=== PATIENT | female | born 1950 | race Caucasian/White ===

== ENCOUNTER 2022-04-30 06:49 | Outpatient (CLI) | payer MEDICARE | END 2022-04-30 06:50 | disposition home or self-care (01) | LOC: BICULT 06:49 | PROVIDERS: ATTEND Internal Medicine Nephrology | DX: I12.9 Hypertensive chronic kidney disease with stage 1 through stage 4 chronic kidney disease, or unspecified chronic kidney disease (principal); N18.30 Chronic kidney disease, stage 3 unspecified | CPT/HCPCS: 76770; 93975 ==

== ENCOUNTER 2022-05-12 08:38 | Inpatient (IN) | payer MEDICARE ==
[2022-05-12] MEDS ORDERED: Acetaminophen 500 MG TAB ONE (09:33)
[2022-05-12 09:40] LABS: Hemoglobin 5.7 g/dL (12.0-16.0); Mean Corpuscular HGB CONC 29.2 g/dL (32.0-36.0); Mean Corpuscular Hemoglobin 18.4 pg (27.0-31.0); Mean Corpuscular Volume 63.1 fl (78.0-98.0); Mean Platelet Volume 5.1 fL (7.4-10.4); Platelet Count 201 10x3/uL (130-400); RBC Distribution Width 17.2 % (11.5-14.5); Red Blood Cell (RBC) Count 3.08 mill/uL (4.20-5.40); White Blood Cell (WBC) Count 3.8 10x3/uL (4.8-10.8)
[2022-05-12 09:58] LABS: Band 1 % (5-11); Eosinophils 1 % (0-10); Hypochromia MODERATE=16-30 cells (100X) (0-5/hpf); Lymphocytes 26 % (21-51); MDiff Complete? YES; Microcytosis MODERATE=15-30 cells (100X) (0-5/hpf); Monocytes 10 % (0-10); Neutrophil 62 % (42-75); Platelet Morphology Comment Appears Adequate; Polychromasia SLIGHT = 2-3 cells (100X) (0-2/hpf); Schistocytes SLIGHT = 2-5 cells (100X) (0-1/hpf); Small Platelets MODERATE; Tear Drops SLIGHT = 2-5 cells (100X) (0-1/hpf)
[2022-05-12 10:00] LABS: ALT (SGPT) 26 U/L (8-55); AST (SGOT) 35 U/L (5-34); Albumin 4.1 g/dL (3.4-4.8); Alkaline Phosphatase 111 U/L (40-110); Anion Gap 14 mmol/L (10-20); BUN (Urea Nitrogen) 9 mg/dL (9.8-20.1); Bilirubin, Total 0.2 mg/dL (0.2-1.2); Calc. Creatinine Clearance 0 mL/min (70-130); Calcium 8.9 mg/dL (7.8-10.44); Carbon Dioxide 24 mmol/L (23-31); Chloride 107 mmol/L (98-107); Estimated GFR 63; Globulin 2.5 g/dL (2.4-3.5); Glucose 110 mg/dL (83-110); Magnesium 1.6 mg/dL (1.6-2.6); Potassium 3.1 mmol/L (3.5-5.1); Protein, Total 6.6 g/dL (5.8-8.1); Sodium 142 mmol/L (136-145)
[2022-05-12 10:19] LABS: CKMB 0.5 ng/mL (0-6.6)
[2022-05-12 11:08] LABS: SARS-CoV-2 NAA Rapid Test DETECTED (NotDetected)
[2022-05-12 14:20] LABS: Iron 16 ug/dL (50-170); Iron Binding Capacity, Total 421 mcg/dL (265-497)
[2022-05-12 14:23] LABS: Troponin I 0.074 ng/mL (< 0.028)
[2022-05-12] MEDS ORDERED: Potassium Chloride 20 MEQ TAB PO SCH (14:45)
[2022-05-12] MEDS ORDERED: Magnesium 2 GM/50 ML(in water) 2 GM in Premix Bag 1 BAG IVPB SCH (15:00)
[2022-05-12 16:34] VITALS: BMI 28.5
[2022-05-12] MEDS ORDERED: FLU VACC QS2022-23(65YR UP)/PF 240 MCG/0.7 ML SYRINGE IM ONE (18:45)
[2022-05-12 19:06] LABS: Troponin I 0.064 ng/mL (< 0.028)
[2022-05-12] MEDS: Carvedilol 25 MG TAB PO SCH (20:52)
[2022-05-12] MEDS ORDERED: Famotidine 20 MG TAB PO SCH (21:00)
[2022-05-12] MEDS ORDERED: Mirtazapine 15 MG Soltab PO SCH (21:00)
[2022-05-12] MEDS ORDERED: Atorvastatin Calcium 20 MG TAB PO SCH (21:00)
[2022-05-12] MEDS ORDERED: Prazosin HCl 1 MG CAP PO SCH (21:00)
[2022-05-12 23:23] LABS: Hemoglobin 7.2 g/dL (12.0-16.0)
[2022-05-13] MEDS ORDERED: Furosemide 20 MG/2 ML VIAL SLOW IVP SCH ×2 (00:15→16:00)
[2022-05-13] MEDS: Acetaminophen 325 MG TAB PO PRN ×2 (01:27→16:19)
[2022-05-13 05:02] LABS: Anion Gap 10 mmol/L (10-20); BUN (Urea Nitrogen) 12 mg/dL (9.8-20.1); Calc. Creatinine Clearance 57 mL/min (70-130); Calcium 8.3 mg/dL (7.8-10.44); Carbon Dioxide 28 mmol/L (23-31); Chloride 107 mmol/L (98-107); Estimated GFR 54; Glucose 100 mg/dL (83-110); Potassium 3.2 mmol/L (3.5-5.1); Sodium 142 mmol/L (136-145)
[2022-05-13 05:12] LABS: Anisocytosis MODERATE=16-30 cells (100X) (0-5/hpf); Eosinophils 1 % (0-10); Hemoglobin 7.2 g/dL (12.0-16.0); Large Platelets SLIGHT; Lymphocytes 18 % (21-51); MDiff Complete? YES; Mean Corpuscular HGB CONC 31.2 g/dL (32.0-36.0); Mean Corpuscular Hemoglobin 21.6 pg (27.0-31.0); Mean Corpuscular Volume 69.3 fl (78.0-98.0); Mean Platelet Volume 5.2 fL (7.4-10.4); Microcytosis SLIGHT = 6-15 cells (100X) (0-5/hpf); Monocytes 21 % (0-10); Myelocyte 1 % (0-0); Neutrophil 59 % (42-75); Ovalocytes SLIGHT = 2-5 cells (100X) (0-1/hpf); Platelet Count 174 10x3/uL (130-400); Platelet Morphology Comment Appears Adequate; Polychromasia SLIGHT = 2-3 cells (100X) (0-2/hpf); RBC Distribution Width 21.9 % (11.5-14.5); Red Blood Cell (RBC) Count 3.34 mill/uL (4.20-5.40); White Blood Cell (WBC) Count 3.5 10x3/uL (4.8-10.8)
[2022-05-13] MEDS ORDERED: Levothyroxine Sodium 50 MCG TAB PO SCH (06:00)
[2022-05-13 07:50] LABS: Phosphorus 2.7 mg/dL (2.3-4.7)
[2022-05-13] MEDS ORDERED: Carvedilol 3.125 MG TAB PO SCH (08:00)
[2022-05-13] MEDS: Carvedilol 25 MG TAB PO SCH (08:17)
[2022-05-13] MEDS ORDERED: Cholecalciferol 1,000 UNITS (25 MCG) TAB PO SCH (09:00)
[2022-05-13] MEDS ORDERED: FLUoxetine HCl 20 MG CAP PO SCH (09:00)
[2022-05-13] MEDS ORDERED: Losartan 25 MG TAB PO SCH (09:00)
[2022-05-13] MEDS ORDERED: Magnesium Oxide 250 MG TAB PO SCH (09:00)
[2022-05-13] MEDS ORDERED: Ferrex 150 Plus (iron poly cmplx) PO SCH (09:00)
[2022-05-13] MEDS ORDERED: Amlodipine 5 MG TAB PO SCH (09:00)
[2022-05-13] MEDS ORDERED: Ferrous Sulfate 325 MG TAB PO SCH ×2 (10:00→12:00)
[2022-05-13] MEDS ORDERED: Furosemide 20 MG TAB PO SCH (15:30)
[2022-05-13] MEDS ORDERED: Furosemide 20 MG in Sodium Chloride 0.9% 90 ML IVPB SCH (15:45)
[2022-05-13 16:42] VITALS: TEMP 99.2
[2022-05-13 16:46] VITALS: BP 130/60
[2022-05-13] MEDS ORDERED: Potassium Chloride 20 MEQ TAB PO SCH (17:00)
[2022-05-13] MEDS ORDERED: Famotidine 20 MG TAB PO SCH (21:00)
== END 2022-05-13 18:51 | disposition home or self-care (01) | DRG 811 ==
LOC: ERS 08:38 → ERHOLD 11:44 → 2NO 15:21
PROVIDERS: ADMIT Student in an Organized Health Care Education/Training Program; ATTEND Student in an Organized Health Care Education/Training Program
PROC: 30233N1 Transfusion of Nonautologous Red Blood Cells into Peripheral Vein, Percutaneous Approach (ICD-10-PCS; principal; 2022-05-12)
DX: D53.9 Nutritional anemia, unspecified (principal); U07.1 COVID-19; I13.0 Hypertensive heart and chronic kidney disease with heart failure and stage 1 through stage 4 chronic kidney disease, or unspecified chronic kidney disease; I50.22 Chronic systolic (congestive) heart failure; E87.6 Hypokalemia; E83.42 Hypomagnesemia; F41.9 Anxiety disorder, unspecified; F32.A Depression, unspecified; F43.10 Post-traumatic stress disorder, unspecified; E78.5 Hyperlipidemia, unspecified; N18.9 Chronic kidney disease, unspecified; Z88.5 Allergy status to narcotic agent; Z79.899 Other long term (current) drug therapy; Z90.710 Acquired absence of both cervix and uterus
CPT/HCPCS: 36415; 36430; 71045; 80048; 80053; 82553; 82728; 83540; 83550; 83605; 83735; 83880; 84100; 84484; 85025; 85060; 86850; 86900; 86901; 87040; 93005; J1940; J3475; P9016

== ENCOUNTER 2025-02-13 22:25 | Inpatient (IN) | payer MEDICARE ==
[2025-02-13 22:59] LABS: #Basophils 0.04 10x3/uL (0.0-0.2); #Eosinophils Less than 0.03 10x3/uL (0.0-0.7); #Monocytes 0.93 10x3/uL (0.11-0.59); #Neutrophils 6.97 10x3/uL (1.40-6.50); %Basophils 0.4 % (0.0-1.0); %Eosinophils 0.0 % (0.0-10.0); %Lymphocytes 17.0 % (21.0-51.0); %Monocytes 9.7 % (0.0-10.0); %Neutrophils 72.5 % (42.0-75.0); Hematocrit 32.2 % (36.0-47.0); Hemoglobin 9.9 g/dL (12.0-16.0); Mean Corpuscular Hemoglobin 27.1 pg (27.0-31.0); Mean Corpuscular Volume 88.2 fL (78.0-98.0); Platelet Count 194 10x3/uL (130-400); Red Blood Cell (RBC) Count 3.65 mill/uL (4.20-5.40); White Blood Cell (WBC) Count 9.62 10x3/uL (4.8-10.8)
[2025-02-13 23:11] LABS: ALT (SGPT) 48 U/L (Less than 34); AST (SGOT) 137 U/L (11-34); Albumin 2.1 g/dL (3.1-4.5); Alkaline Phosphatase 632 U/L (40-110); Anion Gap 11 mmol/L (10-20); BUN (Urea Nitrogen) 14 mg/dL (9.8-20.1); Bilirubin, Total 1.1 mg/dL (0.3-1.2); Calc. Creatinine Clearance 0 mL/min (70-130); Calcium 7.9 mg/dL (7.8-10.44); Carbon Dioxide 27 mmol/L (23-31); Chloride 108 mmol/L (98-107); Globulin 3.6 g/dL (2.4-3.5); Glucose 83 mg/dL (83-110); Potassium 3.3 mmol/L (3.5-5.1); Sodium 143 mmol/L (136-145)
[2025-02-14] MEDS ORDERED: Furosemide 40 MG (4 mL) VIAL ONE (00:17)
[2025-02-14] MEDS ORDERED: Melatonin 3 MG TAB PO PRN (01:12)
[2025-02-14] MEDS ORDERED: Ondansetron PF 4 MG/2 ML Vial IVP PRN (01:14)
[2025-02-14] MEDS ORDERED: Calcium Carbonate 500 MG ChewTAB PO PRN (01:14)
[2025-02-14] MEDS ORDERED: Benzonatate 100 MG CAP PO PRN (01:14)
[2025-02-14] MEDS ORDERED: Benzocaine/Menthol 1 LOZ LOZ PO PRN (01:14)
[2025-02-14] MEDS ORDERED: Artificial Tear Ophth Sol 15 ML BOT EA EYE PRN (01:14)
[2025-02-14] MEDS ORDERED: Diphenoxylate HCl/Atropine Tablet PO PRN (01:14)
[2025-02-14] MEDS ORDERED: Ibuprofen 200 MG TAB PO PRN (01:14)
[2025-02-14] MEDS ORDERED: Prochlorperazine 10 MG/2 ML VIAL SLOW IVP PRN (01:18)
[2025-02-14] MEDS: Magnesium Sulfate/D5W 1 GM in Premix 1 BAG IVPB SCH (03:38)
[2025-02-14 03:40] VITALS: BMI 22.2
[2025-02-14 03:49] LABS: #Basophils 0.04 10x3/uL (0.0-0.2); #Eosinophils Less than 0.03 10x3/uL (0.0-0.7); #Monocytes 1.06 10x3/uL (0.11-0.59); #Neutrophils 7.54 10x3/uL (1.40-6.50); %Basophils 0.4 % (0.0-1.0); %Eosinophils 0.0 % (0.0-10.0); %Lymphocytes 15.3 % (21.0-51.0); %Monocytes 10.3 % (0.0-10.0); %Neutrophils 73.5 % (42.0-75.0); Hematocrit 32.5 % (36.0-47.0); Hemoglobin 9.8 g/dL (12.0-16.0); Mean Corpuscular Hemoglobin 27.3 pg (27.0-31.0); Mean Corpuscular Volume 90.5 fL (78.0-98.0); Platelet Count 192 10x3/uL (130-400); Red Blood Cell (RBC) Count 3.59 mill/uL (4.20-5.40); White Blood Cell (WBC) Count 10.26 10x3/uL (4.8-10.8)
[2025-02-14 04:08] LABS: ALT (SGPT) 48 U/L (Less than 34); AST (SGOT) 140 U/L (11-34); Albumin 2.1 g/dL (3.1-4.5); Alkaline Phosphatase 637 U/L (40-110); Anion Gap 14 mmol/L (10-20); BUN (Urea Nitrogen) 14 mg/dL (9.8-20.1); Bilirubin, Total 1.2 mg/dL (0.3-1.2); Calc. Creatinine Clearance 48 mL/min (70-130); Calcium 8.0 mg/dL (7.8-10.44); Carbon Dioxide 25 mmol/L (23-31); Chloride 107 mmol/L (98-107); Globulin 3.7 g/dL (2.4-3.5); Glucose 89 mg/dL (83-110); Magnesium 2.0 mg/dL (1.6-2.6); Potassium 3.4 mmol/L (3.5-5.1); Sodium 143 mmol/L (136-145)
[2025-02-14] MEDS: Carvedilol 6.25 MG TAB PO SCH (09:57)
[2025-02-14] MEDS: Enoxaparin 40 MG (0.4 mL) SYRINGE SC SCH (09:57)
[2025-02-14] MEDS: Losartan 25 MG TAB PO SCH (09:58)
[2025-02-14] MEDS: Famotidine 20 MG TAB PO SCH (09:59)
[2025-02-14] MEDS: Ferrous Sulfate 325 MG TAB PO SCH (09:59)
[2025-02-14] MEDS: BuPROPion 100 MG SR.TAB PO SCH (11:46)
[2025-02-14] MEDS: Furosemide 20 MG (2 mL) VIAL SLOW IVP SCH (11:46)
[2025-02-15 03:44] LABS: #Basophils 0.03 10x3/uL (0.0-0.2); #Eosinophils Less than 0.03 10x3/uL (0.0-0.7); #Monocytes 0.95 10x3/uL (0.11-0.59); #Neutrophils 5.17 10x3/uL (1.40-6.50); %Basophils 0.4 % (0.0-1.0); %Eosinophils 0.0 % (0.0-10.0); %Lymphocytes 20.9 % (21.0-51.0); %Monocytes 12.1 % (0.0-10.0); %Neutrophils 66.1 % (42.0-75.0); Hematocrit 30.1 % (36.0-47.0); Hemoglobin 9.0 g/dL (12.0-16.0); Mean Corpuscular Hemoglobin 26.7 pg (27.0-31.0); Mean Corpuscular Volume 89.3 fL (78.0-98.0); Platelet Count 161 10x3/uL (130-400); Red Blood Cell (RBC) Count 3.37 mill/uL (4.20-5.40); White Blood Cell (WBC) Count 7.83 10x3/uL (4.8-10.8)
[2025-02-15 04:28] LABS: ALT (SGPT) 43 U/L (Less than 34); AST (SGOT) 118 U/L (11-34); Albumin 1.8 g/dL (3.1-4.5); Alkaline Phosphatase 560 U/L (40-110); Anion Gap 11 mmol/L (10-20); BUN (Urea Nitrogen) 20 mg/dL (9.8-20.1); Bilirubin, Total 0.9 mg/dL (0.3-1.2); Calc. Creatinine Clearance 30 mL/min (70-130); Calcium 7.6 mg/dL (7.8-10.44); Carbon Dioxide 25 mmol/L (23-31); Chloride 109 mmol/L (98-107); Globulin 3.1 g/dL (2.4-3.5); Glucose 76 mg/dL (83-110); Potassium 3.6 mmol/L (3.5-5.1); Sodium 141 mmol/L (136-145)
[2025-02-15] MEDS: Enoxaparin 30 MG (0.3 mL) SYRINGE SC SCH (09:42)
[2025-02-16 05:27] LABS: #Basophils 0.05 10x3/uL (0.0-0.2); #Eosinophils Less than 0.03 10x3/uL (0.0-0.7); #Monocytes 1.00 10x3/uL (0.11-0.59); #Neutrophils 6.81 10x3/uL (1.40-6.50); %Basophils 0.5 % (0.0-1.0); %Eosinophils 0.0 % (0.0-10.0); %Lymphocytes 19.8 % (21.0-51.0); %Monocytes 10.1 % (0.0-10.0); %Neutrophils 69.0 % (42.0-75.0); Hematocrit 30.5 % (36.0-47.0); Hemoglobin 9.4 g/dL (12.0-16.0); Mean Corpuscular Hemoglobin 27.2 pg (27.0-31.0); Mean Corpuscular Volume 88.4 fL (78.0-98.0); Platelet Count 202 10x3/uL (130-400); Red Blood Cell (RBC) Count 3.45 mill/uL (4.20-5.40); White Blood Cell (WBC) Count 9.88 10x3/uL (4.8-10.8)
[2025-02-16 05:43] LABS: ALT (SGPT) 45 U/L (Less than 34); AST (SGOT) 137 U/L (11-34); Albumin 1.8 g/dL (3.1-4.5); Alkaline Phosphatase 580 U/L (40-110); Anion Gap 14 mmol/L (10-20); BUN (Urea Nitrogen) 27 mg/dL (9.8-20.1); Bilirubin, Total 1.0 mg/dL (0.3-1.2); Calc. Creatinine Clearance 16 mL/min (70-130); Calcium 7.7 mg/dL (7.8-10.44); Carbon Dioxide 26 mmol/L (23-31); Chloride 108 mmol/L (98-107); Globulin 3.4 g/dL (2.4-3.5); Glucose 73 mg/dL (83-110); Potassium 4.0 mmol/L (3.5-5.1); Sodium 144 mmol/L (136-145)
[2025-02-16 10:25] VITALS: BMI 21.3
[2025-02-16 14:31] LABS: INR-International Normal Ratio 2.0; Prothrombin Time 22.5 sec (12.0-14.7)
[2025-02-16 14:32] LABS: PTT 67.4 sec (22.9-36.1)
[2025-02-16] MEDS: Albumin 25% 25 GM (100 mL) BOT IVPB SCH (17:05)
[2025-02-16] MEDS: PNEUMOC 20-VAL CONJ-DIP CRM/PF 0.5 ML SYRINGE IM ONE (18:14)
[2025-02-17] MEDS: Acetaminophen 500 MG TAB PO PRN (03:52)
[2025-02-17 05:09] LABS: #Basophils 0.06 10x3/uL (0.0-0.2); #Eosinophils Less than 0.03 10x3/uL (0.0-0.7); #Monocytes 1.09 10x3/uL (0.11-0.59); #Neutrophils 7.50 10x3/uL (1.40-6.50); %Basophils 0.6 % (0.0-1.0); %Eosinophils 0.0 % (0.0-10.0); %Lymphocytes 14.0 % (21.0-51.0); %Monocytes 10.8 % (0.0-10.0); %Neutrophils 74.2 % (42.0-75.0); Hematocrit 30.7 % (36.0-47.0); Hemoglobin 9.4 g/dL (12.0-16.0); Mean Corpuscular Hemoglobin 27.6 pg (27.0-31.0); Mean Corpuscular Volume 90.0 fL (78.0-98.0); Platelet Count 163 10x3/uL (130-400); Red Blood Cell (RBC) Count 3.41 mill/uL (4.20-5.40); White Blood Cell (WBC) Count 10.10 10x3/uL (4.8-10.8)
[2025-02-17 05:27] LABS: ALT (SGPT) 39 U/L (Less than 34); AST (SGOT) 124 U/L (11-34); Albumin 2.6 g/dL (3.1-4.5); Alkaline Phosphatase 508 U/L (40-110); Anion Gap 17 mmol/L (10-20); BUN (Urea Nitrogen) 32 mg/dL (9.8-20.1); Bilirubin, Total 1.3 mg/dL (0.3-1.2); Calc. Creatinine Clearance 12 mL/min (70-130); Calcium 8.1 mg/dL (7.8-10.44); Carbon Dioxide 20 mmol/L (23-31); Chloride 107 mmol/L (98-107); Globulin 3.2 g/dL (2.4-3.5); Glucose 91 mg/dL (83-110); Potassium 3.8 mmol/L (3.5-5.1); Sodium 140 mmol/L (136-145)
[2025-02-17 09:32] LABS: Actual Bicarbonate (HCO3v) 24.4 mEq/L (22-28); Base Excess 1.2 mEq/L (-2.0 to +3.0); Calcium, Ionized (venous) 1.03 mmol/L (1.16-1.32); Chloride (VBG) 105 mmol/L (98-106); Hematocrit-VBG 30 % (36.0-47.0); Hemoglobin (Hb) 10.1 g/dL (11.7-16.1); Potassium (VBG) 3.90 mmol/L (3.70-5.30); Sodium 141 mmol/L (133-146)
[2025-02-17 18:03] LABS: Bacteria/HPF None Seen HPF (None Seen); CAUTI Indications for Culture Dysuria,urgency,freq; Glucose, Urine (Dipstick) Normal (Negative); Leukocyte 500 Leu/uL (Negative); Protein, Urine (Dipstick) 100 mg/dL (Neg-Trace); RBC/HPF None Seen HPF (0-3); Specific Gravity, Urine 1.009 (1.002-1.036); WBC/HPF None Seen HPF (0-3)
[2025-02-17 18:18] LABS: Urine Culture Reflex No No
[2025-02-17 20:01] LABS: ALT (SGPT) 33 U/L (Less than 34); AST (SGOT) 102 U/L (11-34); Albumin 3.0 g/dL (3.1-4.5); Alkaline Phosphatase 438 U/L (40-110); Anion Gap 18 mmol/L (10-20); BUN (Urea Nitrogen) 34 mg/dL (9.8-20.1); Bilirubin, Total 1.4 mg/dL (0.3-1.2); Calc. Creatinine Clearance 11 mL/min (70-130); Calcium 8.2 mg/dL (7.8-10.44); Carbon Dioxide 20 mmol/L (23-31); Chloride 107 mmol/L (98-107); Globulin 2.7 g/dL (2.4-3.5); Glucose 75 mg/dL (83-110); Potassium 3.9 mmol/L (3.5-5.1); Sodium 141 mmol/L (136-145)
[2025-02-18 04:46] LABS: #Basophils 0.04 10x3/uL (0.0-0.2); #Eosinophils Less than 0.03 10x3/uL (0.0-0.7); #Monocytes 1.14 10x3/uL (0.11-0.59); #Neutrophils 6.85 10x3/uL (1.40-6.50); %Basophils 0.4 % (0.0-1.0); %Eosinophils 0.0 % (0.0-10.0); %Lymphocytes 16.7 % (21.0-51.0); %Monocytes 11.8 % (0.0-10.0); %Neutrophils 70.7 % (42.0-75.0); Hematocrit 27.5 % (36.0-47.0); Hemoglobin 8.6 g/dL (12.0-16.0); Mean Corpuscular Hemoglobin 27.4 pg (27.0-31.0); Mean Corpuscular Volume 87.6 fL (78.0-98.0); Platelet Count 142 10x3/uL (130-400); Red Blood Cell (RBC) Count 3.14 mill/uL (4.20-5.40); White Blood Cell (WBC) Count 9.69 10x3/uL (4.8-10.8)
[2025-02-18 05:03] LABS: INR-International Normal Ratio 2.4; Prothrombin Time 26.7 sec (12.0-14.7)
[2025-02-18 05:04] LABS: PTT 63.4 sec (22.9-36.1)
[2025-02-18 05:18] LABS: ALT (SGPT) 29 U/L (Less than 34); AST (SGOT) 93 U/L (11-34); Albumin 3.0 g/dL (3.1-4.5); Alkaline Phosphatase 409 U/L (40-110); Anion Gap 15 mmol/L (10-20); BUN (Urea Nitrogen) 36 mg/dL (9.8-20.1); Bilirubin, Total 1.3 mg/dL (0.3-1.2); Calc. Creatinine Clearance 10 mL/min (70-130); Calcium 8.2 mg/dL (7.8-10.44); Carbon Dioxide 25 mmol/L (23-31); Chloride 107 mmol/L (98-107); Globulin 2.4 g/dL (2.4-3.5); Glucose 67 mg/dL (83-110); Potassium 3.9 mmol/L (3.5-5.1); Sodium 143 mmol/L (136-145)
[2025-02-18] MEDS: Albumin 25% 25 GM (100 mL) BOT IVPB SCH (05:48)
[2025-02-18] MEDS: Pantoprazole 40 MG VIAL IVP SCH (11:33)
[2025-02-19] MEDS: BuPROPion 100 MG SR.TAB PO SCH (08:18)
[2025-02-19] MEDS: Pantoprazole 40 MG VIAL IVP SCH (08:18)
[2025-02-19 11:41] VITALS: BP 129/60; TEMP 98.4
== END 2025-02-19 14:15 | disposition hospice, home (50) | DRG 189 ==
LOC: ERS 22:25 → 2NO 02-14 00:57 → OBSVTOIN 02-15 10:12
PROVIDERS: ADMIT Emergency Medicine; ATTEND Emergency Medicine
PROC: 0T9B70Z Drainage of Bladder with Drainage Device, Via Natural or Artificial Opening (ICD-10-PCS; principal; 2025-02-16)
PROC: 30233J1 Transfusion of Nonautologous Serum Albumin into Peripheral Vein, Percutaneous Approach (ICD-10-PCS; 2025-02-16)
PROC: 0T9B70Z Drainage of Bladder with Drainage Device, Via Natural or Artificial Opening (ICD-10-PCS; 2025-02-17)
DX: J96.01 Acute respiratory failure with hypoxia (principal); E43 Unspecified severe protein-calorie malnutrition; N18.6 End stage renal disease; I50.22 Chronic systolic (congestive) heart failure; S22.080A Wedge compression fracture of T11-T12 vertebra, initial encounter for closed fracture; N17.9 Acute kidney failure, unspecified; I13.2 Hypertensive heart and chronic kidney disease with heart failure and with stage 5 chronic kidney disease, or end stage renal disease; R18.8 Other ascites; Z66 Do not resuscitate; K74.60 Unspecified cirrhosis of liver; E78.5 Hyperlipidemia, unspecified; E03.9 Hypothyroidism, unspecified; D63.1 Anemia in chronic kidney disease; F41.9 Anxiety disorder, unspecified; F32.9 Major depressive disorder, single episode, unspecified; K44.9 Diaphragmatic hernia without obstruction or gangrene; R74.01 Elevation of levels of liver transaminase levels; I45.81 Long QT syndrome; E87.6 Hypokalemia; R62.7 Adult failure to thrive; M19.90 Unspecified osteoarthritis, unspecified site; E78.00 Pure hypercholesterolemia, unspecified; G47.00 Insomnia, unspecified; K21.9 Gastro-esophageal reflux disease without esophagitis; Z96.0 Presence of urogenital implants; F32.A Depression, unspecified; F43.10 Post-traumatic stress disorder, unspecified; I95.9 Hypotension, unspecified; R33.9 Retention of urine, unspecified; R41.0 Disorientation, unspecified; Z68.21 Body mass index [BMI] 21.0-21.9, adult; Z79.890 Hormone replacement therapy; Z51.5 Encounter for palliative care; Z88.8 Allergy status to other drugs, medicaments and biological substances; Z90.10 Acquired absence of unspecified breast and nipple; Z90.710 Acquired absence of both cervix and uterus; Z98.51 Tubal ligation status; Z79.899 Other long term (current) drug therapy
CPT/HCPCS: 36415; 71045; 71250; 74176; 76770; 80053; 81001; 82805; 83605; 83735; 83880; 84300; 84484; 85025; 85610; 85730; 93005; 93306; 96365; 96372; 96375; 96376; G0378; J1650; J1940; J2470; J3475; J7120; P9047; Q0162